=== PATIENT | male | born 1955 | race Two or more races ===

== ENCOUNTER → 2020-08-01 | Day surgery (SDC) | payer BC ==
[2020-07-26 16:44] VITALS: BMI 28.4
[2020-08-01 09:16] VITALS: TEMP 97.5
[2020-08-01 10:26] VITALS: BP 136/73; PULSE 59
[2020-08-01 10:57] LABS: BASO % 0.4 % (0-2.0); EOS % 1.7 % (0-4.5); HEMATOCRIT 41.9 % (35.4-49); HEMOGLOBIN 14.3 GM/dL (11.7-16.9); LYMPH % 30.8 % (8-40); MCH 29.3 pg (25.7-33.7); MCHC 34.2 g/dl (32.0-35.9); MEAN CELL VOLUME 85.7 fl (80-96); MEAN PLT VOLUME 7.7 fl (7.5-11.1); MONO % 8.3 % (3.8-10.2); NEUT % 58.8 % (42.8-82.8); PLATELET COUNT 275 K/MM3 (134-434); RBC 4.89 M/mm3 (4.00-5.60); RDW 12.8 % (11.9-15.9); WHITE BLOOD COUNT 6.6 K/mm3 (4.0-10.0)
[2020-08-01 11:06] LABS: PROTHROMBIN TIME (PATIENT) 12.3 SEC (9.7-13.0)
[2020-08-01 11:13] LABS: CHLORIDE 105 mmol/L (98-107); SODIUM 138 mmol/L (136-145)
[2020-08-01 11:16] LABS: ALBUMIN 3.8 g/dl (3.4-5.0); ANION GAP 4 MMOL/L (8-16); BLOOD UREA NITROGEN 16.9 mg/dL (7-18); CALCIUM 9.1 mg/dL (8.5-10.1); CO2 30 mmol/L (21-32); GLUCOSE,RANDOM 101 mg/dL (74-106)
[2020-08-01 11:19] LABS: BILIRUBIN,TOTAL 0.5 mg/dL (0.2-1); CREATININE 1.1 mg/dL (0.55-1.3); IRON SERUM 116 ug/dL (50-175); SGOT/AST 19 U/L (15-37); SGPT/ALT 28 U/L (13-61); TOT PROT 7.1 g/dl (6.4-8.2); TOTAL IRON BINDING CAPACITY 403 ug/dL (250-450)
[2020-08-01 11:21] LABS: ALK PHOS 91 U/L (45-117)
== END | disposition home or self-care (01) ==
LOC: JASU-ENDO 04:28
PROVIDERS: ATTEND Internal Medicine Gastroenterology
PROC: 0DB68ZX Excision of Stomach, Via Natural or Artificial Opening Endoscopic, Diagnostic (ICD-10-PCS; 2020-08-01)
PROC: 0DB48ZX Excision of Esophagogastric Junction, Via Natural or Artificial Opening Endoscopic, Diagnostic (ICD-10-PCS; 2020-08-01)
PROC: 0DBK8ZX Excision of Ascending Colon, Via Natural or Artificial Opening Endoscopic, Diagnostic (ICD-10-PCS; 2020-08-01)
PROC: 0DBL8ZX Excision of Transverse Colon, Via Natural or Artificial Opening Endoscopic, Diagnostic (ICD-10-PCS; 2020-08-01)
PROC: 3E0H8KZ Introduction of Other Diagnostic Substance into Lower GI, Via Natural or Artificial Opening Endoscopic (ICD-10-PCS; 2020-08-01)
PROC: 0DB98ZX Excision of Duodenum, Via Natural or Artificial Opening Endoscopic, Diagnostic (ICD-10-PCS; principal; 2020-08-01 08:00)
DX: Z12.11 Encounter for screening for malignant neoplasm of colon (principal); D12.3 Benign neoplasm of transverse colon; K64.8 Other hemorrhoids; K57.30 Diverticulosis of large intestine without perforation or abscess without bleeding; K29.80 Duodenitis without bleeding; K29.50 Unspecified chronic gastritis without bleeding; K21.00 Gastro-esophageal reflux disease with esophagitis, without bleeding; Z80.0 Family history of malignant neoplasm of digestive organs; D12.2 Benign neoplasm of ascending colon
CPT/HCPCS: 36415; 80053; 82378; 82728; 83540; 83550; 85025; 85610; 86140; 88305-TC; 88342-TC

== ENCOUNTER 2020-11-02 04:24 | Inpatient (IN) | payer BC ==
[2020-11-02] MEDS ORDERED: ALVIMOPAN 12 MG CAP PO SCH (06:30)
[2020-11-02 06:44] VITALS: BMI 26.4
[2020-11-02] MEDS ORDERED: ALVIMOPAN 12 MG CAP PO ONE ×2 (07:00→12:47)
[2020-11-02] MEDS ORDERED: ERTAPENEM SODIUM 1 GM in SODIUM CHLORIDE 50 ML IVPB ONE ×2 (07:00→12:47)
[2020-11-02] MEDS ORDERED: BUPIVACAINE LIPOSOME/PF (EXPAREL) 266 MG/20 ML VIAL ONE (07:38)
[2020-11-02] MEDS ORDERED: MIDAZOLAM HCL 2 MG/2 ML SINGLE DOSE VIAL ONE ×2 (07:39)
[2020-11-02] MEDS ORDERED: ERTAPENEM SODIUM 1 GM VIAL IVPB ONE (08:40)
[2020-11-02] MEDS ORDERED: ceFAZolin 2 GRAM PREMIX BAG IVPB ONE (08:40)
[2020-11-02] MEDS ORDERED: INDOCYANINE GREEN 25 MG/10 ML VIAL IVPUSH ONE (10:23)
[2020-11-02] MEDS ORDERED: morphine SULFATE 4 MG/ML VIAL IVPUSH PRN (12:07)
[2020-11-02] MEDS ORDERED: ACETAMINOPHEN INJECTION 100 ML IVPB ONE (12:43)
[2020-11-02] MEDS: ACETAMINOPHEN 1000 MG/100 ML VIAL (NON FORMULARY) IVPB PRN (12:45)
[2020-11-02] MEDS ORDERED: oxyCODONE HCL 5 MG TABLET PO PRN (13:36)
[2020-11-02] MEDS ORDERED: ONDANSETRON 4 MG/2 ML VIAL IVPUSH PRN (13:36)
[2020-11-02] MEDS ORDERED: traMADol HCL 50 MG TABLET PO PRN (13:36)
[2020-11-02] MEDS ORDERED: KETOROLAC TROMETHAMINE 30 MG/1 ML VIAL ONE (13:38)
[2020-11-02] MEDS: KETOROLAC TROMETHAMINE 15 MG/ML VIAL IVPUSH PRN (13:45)
[2020-11-02] MEDS ORDERED: LACTATED RINGERS SOLUTION 1,000 ML IV SCH (13:45)
[2020-11-02] MEDS: SODIUM CHLORIDE 1,000 ML IV SCH (16:54)
[2020-11-02] MEDS: CEFAZOLIN 2 GM/D5W 2 GM/50 ML ML IVPB SCH (18:00)
[2020-11-02] MEDS: oxyCODONE HCL 5 MG TABLET PO PRN (20:47)
[2020-11-03] MEDS: SODIUM CHLORIDE 1,000 ML IV SCH ×3 (01:26→14:50)
[2020-11-03] MEDS: CEFAZOLIN 2 GM/D5W 2 GM/50 ML ML IVPB SCH (01:27)
[2020-11-03 07:39] LABS: BASO % 0.1 % (0-2.0); EOS % 0.4 % (0-4.5); HEMATOCRIT 35.1 % (35.4-49); HEMOGLOBIN 12.2 GM/dL (11.7-16.9); LYMPH % 19.7 % (8-40); MCH 29.9 pg (25.7-33.7); MCHC 34.7 g/dl (32.0-35.9); MEAN CELL VOLUME 86.4 fl (80-96); MEAN PLT VOLUME 7.8 fl (7.5-11.1); MONO % 11.3 % (3.8-10.2); NEUT % 68.5 % (42.8-82.8); PLATELET COUNT 205 K/MM3 (134-434); RBC 4.07 M/mm3 (4.00-5.60)
[2020-11-03 08:08] LABS: CALCIUM 7.8 mg/dL (8.5-10.1)
[2020-11-03 08:09] LABS: ALBUMIN 3.1 g/dl (3.4-5.0); BLOOD UREA NITROGEN 20.2 mg/dL (7-18)
[2020-11-03 08:12] LABS: BILIRUBIN,TOTAL 0.8 mg/dL (0.2-1); TOT PROT 5.7 g/dl (6.4-8.2)
[2020-11-03] MEDS: HYDROCHLOROTHIAZIDE 12.5 MG CAPSULE (FP) PO SCH (09:34)
[2020-11-03] MEDS: LOSARTAN POTASSIUM 50 MG TABLET PO SCH (09:34)
[2020-11-03] MEDS: ALVIMOPAN 12 MG CAP PO SCH ×2 (09:35→22:50)
[2020-11-03] MEDS: ENOXAPARIN NA (PORCINE) 40 MG/0.4 ML DISP.SYRIN SQ SCH (09:35)
[2020-11-03] MEDS: ACETAMINOPHEN 1000 MG/100 ML VIAL (NON FORMULARY) IVPB PRN ×2 (12:01→17:40)
[2020-11-03] MEDS: KETOROLAC TROMETHAMINE 15 MG/ML VIAL IVPUSH PRN (18:28)
[2020-11-03] MEDS ORDERED: PT OWN MED DRAWER 7, Y5N ONE (22:41)
[2020-11-04] MEDS ORDERED: PT OWN MED DRAWER 7, Y5N ONE ×2 (09:43→21:02)
[2020-11-04] MEDS: ENOXAPARIN NA (PORCINE) 40 MG/0.4 ML DISP.SYRIN SQ SCH (09:46)
[2020-11-04] MEDS: LOSARTAN POTASSIUM 50 MG TABLET PO SCH (09:46)
[2020-11-04] MEDS: ALVIMOPAN 12 MG CAP PO SCH ×2 (09:46→21:03)
[2020-11-04] MEDS: HYDROCHLOROTHIAZIDE 12.5 MG CAPSULE (FP) PO SCH (09:46)
[2020-11-04] MEDS: FAMOTIDINE 20 MG/50 ML IVPB 20 MG/50 ML MG IVPB SCH ×2 (09:47→21:03)
[2020-11-04] MEDS: SIMETHICONE 80 MG TAB.CHEW (FP) PO PRN ×2 (10:15→14:19)
[2020-11-04 11:00] LABS: BASO % 0.3 % (0-2.0); EOS % 0.1 % (0-4.5); HEMATOCRIT 37.1 % (35.4-49); HEMOGLOBIN 12.7 GM/dL (11.7-16.9); MCH 29.6 pg (25.7-33.7); MCHC 34.2 g/dl (32.0-35.9); MEAN CELL VOLUME 86.4 fl (80-96); MEAN PLT VOLUME 7.6 fl (7.5-11.1); NEUT % 80.6 % (42.8-82.8); PLATELET COUNT 219 K/MM3 (134-434); RDW 12.8 % (11.9-15.9); WHITE BLOOD COUNT 7.4 K/mm3 (4.0-10.0)
[2020-11-04 11:18] LABS: CALCIUM 7.9 mg/dL (8.5-10.1)
[2020-11-04 11:19] LABS: BLOOD UREA NITROGEN 21.2 mg/dL (7-18)
[2020-11-04 11:22] LABS: CREATININE 0.9 mg/dL (0.55-1.3)
[2020-11-04] MEDS: SODIUM CHLORIDE 1,000 ML IV SCH (14:13)
[2020-11-04] MEDS ORDERED: ACETAMINOPHEN 500 MG TABLET (FP) PO PRN (15:16)
[2020-11-05] MEDS: SIMETHICONE 80 MG TAB.CHEW (FP) PO PRN ×2 (00:07→09:11)
[2020-11-05 08:06] LABS: BASO % 0.2 % (0-2.0); EOS % 0.4 % (0-4.5); HEMATOCRIT 38.1 % (35.4-49); HEMOGLOBIN 13.1 GM/dL (11.7-16.9); LYMPH % 13.1 % (8-40); MCH 29.9 pg (25.7-33.7); MCHC 34.3 g/dl (32.0-35.9); MEAN CELL VOLUME 87.2 fl (80-96); MEAN PLT VOLUME 8.1 fl (7.5-11.1); MONO % 7.4 % (3.8-10.2); NEUT % 78.9 % (42.8-82.8); PLATELET COUNT 262 K/MM3 (134-434); RBC 4.36 M/mm3 (4.00-5.60); RDW 13.1 % (11.9-15.9); WHITE BLOOD COUNT 10.5 K/mm3 (4.0-10.0)
[2020-11-05 08:42] LABS: BLOOD UREA NITROGEN 22.3 mg/dL (7-18); CALCIUM 8.5 mg/dL (8.5-10.1)
[2020-11-05 08:45] LABS: CREATININE 0.9 mg/dL (0.55-1.3)
[2020-11-05] MEDS: ENOXAPARIN NA (PORCINE) 40 MG/0.4 ML DISP.SYRIN SQ SCH (09:11)
[2020-11-05] MEDS: LOSARTAN POTASSIUM 50 MG TABLET PO SCH (09:12)
[2020-11-05] MEDS: FAMOTIDINE 20 MG/50 ML IVPB 20 MG/50 ML MG IVPB SCH ×2 (09:12→21:31)
[2020-11-05] MEDS: ALVIMOPAN 12 MG CAP PO SCH ×2 (09:13→23:01)
[2020-11-05] MEDS: HYDROCHLOROTHIAZIDE 12.5 MG CAPSULE (FP) PO SCH (09:13)
[2020-11-05] MEDS: SODIUM CHLORIDE 0.9%/KCL 20 MEQ/1,000 ML INFUS.BAG IV SCH ×2 (14:00→21:01)
[2020-11-05] MEDS ORDERED: ACETAMINOPHEN 1000 MG/100 ML VIAL (NON FORMULARY) IVPB PRN (16:35)
[2020-11-06] MEDS: SODIUM CHLORIDE 0.9%/KCL 20 MEQ/1,000 ML INFUS.BAG IV SCH ×4 (01:30→17:36)
[2020-11-06] MEDS: KETOROLAC TROMETHAMINE 15 MG/ML VIAL IVPUSH PRN (03:43)
[2020-11-06 08:04] LABS: CALCIUM 7.9 mg/dL (8.5-10.1)
[2020-11-06 08:05] LABS: BLOOD UREA NITROGEN 30.2 mg/dL (7-18)
[2020-11-06 08:08] LABS: CREATININE 0.9 mg/dL (0.55-1.3)
[2020-11-06 08:09] LABS: BILIRUBIN,TOTAL 0.9 mg/dL (0.2-1); TOT PROT 5.3 g/dl (6.4-8.2)
[2020-11-06 08:20] LABS: ALBUMIN 2.3 g/dl (3.4-5.0)
[2020-11-06] MEDS: LOSARTAN POTASSIUM 50 MG TABLET PO SCH (09:29)
[2020-11-06] MEDS: ENOXAPARIN NA (PORCINE) 40 MG/0.4 ML DISP.SYRIN SQ SCH (09:29)
[2020-11-06] MEDS: HYDROCHLOROTHIAZIDE 12.5 MG CAPSULE (FP) PO SCH (09:29)
[2020-11-06] MEDS: FAMOTIDINE 20 MG/50 ML IVPB 20 MG/50 ML MG IVPB SCH ×2 (09:29→21:40)
[2020-11-06] MEDS: ALVIMOPAN 12 MG CAP PO SCH ×2 (09:30→21:40)
[2020-11-06] MEDS: SIMETHICONE 80 MG TAB.CHEW (FP) PO PRN (15:17)
[2020-11-06 16:07] LABS: BASO % 0.4 % (0-2.0); EOS % 2.8 % (0-4.5); HEMATOCRIT 35.8 % (35.4-49); HEMOGLOBIN 12.3 GM/dL (11.7-16.9); MCH 29.8 pg (25.7-33.7); MCHC 34.3 g/dl (32.0-35.9); MEAN CELL VOLUME 87.1 fl (80-96); MEAN PLT VOLUME 7.9 fl (7.5-11.1); MONO % 10.2 % (3.8-10.2); NEUT % 72.6 % (42.8-82.8); PLATELET COUNT 281 K/MM3 (134-434); RBC 4.11 M/mm3 (4.00-5.60); RDW 13.2 % (11.9-15.9); WHITE BLOOD COUNT 9.3 K/mm3 (4.0-10.0)
[2020-11-06 16:56] LABS: PLATELET ESTIMATE ADEQUATE
[2020-11-06] MEDS: oxyCODONE HCL 5 MG TABLET PO PRN (18:51)
[2020-11-07] MEDS: SODIUM CHLORIDE 0.9%/KCL 20 MEQ/1,000 ML INFUS.BAG IV SCH ×3 (00:36→13:47)
[2020-11-07 08:48] LABS: BASO % 0.4 % (0-2.0); EOS % 5.6 % (0-4.5); HEMATOCRIT 34.8 % (35.4-49); LYMPH % 24.3 % (8-40); MCH 30.1 pg (25.7-33.7); MCHC 34.3 g/dl (32.0-35.9); MEAN CELL VOLUME 87.6 fl (80-96); MEAN PLT VOLUME 7.6 fl (7.5-11.1); MONO % 14.2 % (3.8-10.2); NEUT % 55.5 % (42.8-82.8); PLATELET COUNT 325 K/MM3 (134-434); RBC 3.98 M/mm3 (4.00-5.60); WHITE BLOOD COUNT 4.5 K/mm3 (4.0-10.0)
[2020-11-07] MEDS ORDERED: PT OWN MED DRAWER 7, Y5N ONE (09:51)
[2020-11-07] MEDS: ALVIMOPAN 12 MG CAP PO SCH (09:55)
[2020-11-07] MEDS: LOSARTAN POTASSIUM 50 MG TABLET PO SCH (09:55)
[2020-11-07] MEDS: ENOXAPARIN NA (PORCINE) 40 MG/0.4 ML DISP.SYRIN SQ SCH (09:56)
[2020-11-07] MEDS: HYDROCHLOROTHIAZIDE 12.5 MG CAPSULE (FP) PO SCH (09:56)
[2020-11-07] MEDS: FAMOTIDINE 20 MG/50 ML IVPB 20 MG/50 ML MG IVPB SCH ×2 (09:56→21:52)
[2020-11-07] MEDS: SIMETHICONE 80 MG TAB.CHEW (FP) PO PRN (18:00)
[2020-11-07] MEDS ORDERED: ACETAMINOPHEN 1000 MG/100 ML VIAL (NON FORMULARY) IVPB PRN (20:57)
[2020-11-08] MEDS: SODIUM CHLORIDE 0.9%/KCL 20 MEQ/1,000 ML INFUS.BAG IV SCH ×4 (04:11→18:54)
[2020-11-08] MEDS: FAMOTIDINE 20 MG/50 ML IVPB 20 MG/50 ML MG IVPB SCH ×2 (11:28→21:32)
[2020-11-08] MEDS: ENOXAPARIN NA (PORCINE) 40 MG/0.4 ML DISP.SYRIN SQ SCH (11:28)
[2020-11-08] MEDS: HYDROCHLOROTHIAZIDE 12.5 MG CAPSULE (FP) PO SCH (11:29)
[2020-11-08] MEDS: LOSARTAN POTASSIUM 50 MG TABLET PO SCH (11:29)
[2020-11-08] MEDS: SIMETHICONE 80 MG TAB.CHEW (FP) PO PRN (11:35)
[2020-11-08] MEDS ORDERED: ACETAMINOPHEN 500 MG TABLET (FP) PO PRN (21:06)
[2020-11-09] MEDS: LOSARTAN POTASSIUM 50 MG TABLET PO SCH (10:23)
[2020-11-09] MEDS: FAMOTIDINE 20 MG/50 ML IVPB 20 MG/50 ML MG IVPB SCH (10:23)
[2020-11-09] MEDS: ENOXAPARIN NA (PORCINE) 40 MG/0.4 ML DISP.SYRIN SQ SCH (10:23)
[2020-11-09] MEDS: HYDROCHLOROTHIAZIDE 12.5 MG CAPSULE (FP) PO SCH (10:23)
[2020-11-09 14:58] VITALS: BP 137/66; PULSE 79; TEMP 98.4
== END 2020-11-09 15:00 | disposition home or self-care (01) | DRG 348 ==
LOC: J2C 04:24 → J8W 17:24
PROVIDERS: ADMIT Surgery; ATTEND Surgery
PROC: 8E0W4CZ Robotic Assisted Procedure of Trunk Region, Percutaneous Endoscopic Approach (ICD-10-PCS; 2020-11-02)
PROC: 0DB Gastrointestinal System, Excision (ICD-10-PCS; principal; 2020-11-02 07:30)
DX: D12.6 Benign neoplasm of colon, unspecified (principal); K56.600 Partial intestinal obstruction, unspecified as to cause; K63.89 Other specified diseases of intestine
CPT/HCPCS: 36415; 74021-TC-FY; 80048; 80053; 85025; 86850; 86900; 86901; 88309-TC; 94010; 94760; J0131